=== PATIENT | female | born 1990 | race Caucasian/White ===

== ENCOUNTER 2021-01-22 22:04 | Emergency (ER) | payer MEDICAID ==
[~2021-01-22] VITALS: Ht 154.9 cm; Wt 49.4 kg
[2021-01-22 22:05] VITALS: BP_SYST 150
[2021-01-22] MEDS ORDERED: HYDR30CR79 TP (23:15)
[2021-01-22 23:36] VITALS: BP_SYST 150
== END 2021-01-22 23:36 | disposition home or self-care (01) ==
LOC: SED 22:04
DX: T18.5XXA Foreign body in anus and rectum, initial encounter (principal); K64.4 Residual hemorrhoidal skin tags; X58.XXXA Exposure to other specified factors, initial encounter; Y93.89 Activity, other specified; Y92.89 Other specified places as the place of occurrence of the external cause; Y99.8 Other external cause status
CPT/HCPCS: 99282

== ENCOUNTER 2023-02-28 11:55 | Emergency (ER) | payer MEDICAID ==
[~2023-02-28] VITALS: Ht 154.9 cm; Wt 52.2 kg
[~2023-02-28 11:55] MED LIST: HYDR30CR79 TP
[2023-02-28 12:16] VITALS: BP_SYST 125
[2023-02-28 12:47] LABS: BILIRUBIN,URINE NEGATIVE (NEGATIVE); BLOOD, URINE 2+ (NEGATIVE); CLARITY/URINE CLEAR (CLEAR); COLOR,URINE YELLOW (YELLOW); GLUCOSE,URINE NEGATIVE (NEGATIVE); KETONES,URINE NEGATIVE (NEGATIVE); LEUKOCYTE ESTERASE ,URINE 1+ (NEGATIVE); NITRITE, URINE NEGATIVE (NEGATIVE); PH,URINE 6.5 (5.0-8.0); PROTEIN URINE NEGATIVE (NEGATIVE); UROBILINOGEN,URINE 0.2 (0.2-1.0)
[2023-02-28 13:05] LABS: BACTERIA,URINE RARE /HPF (None Seen)
[2023-02-28] MEDS ORDERED: CIPR500T5 PO (13:06)
[2023-02-28] MEDS ORDERED: PHEN-727 PO (13:06)
[2023-02-28] MEDS ORDERED: IBUP-1969 PO (13:06)
== END 2023-02-28 13:28 | disposition home or self-care (01) ==
LOC: SED 11:55
DX: N39.0 Urinary tract infection, site not specified (principal); R30.0 Dysuria; R10.30 Lower abdominal pain, unspecified; F12.90 Cannabis use, unspecified, uncomplicated; Z79.899 Other long term (current) drug therapy
CPT/HCPCS: 81000; 87086; 99283